=== PATIENT | female | born 1995 | race Caucasian/White ===

== ENCOUNTER 2016-06-10 15:06 | Emergency (ER) | payer BC ==
[2016-06-10] MEDS ORDERED: NS 0.9% 1000 ML* 1,000 ML IV ONE ×2 (15:58→16:16)
[2016-06-10 16:06] LABS: Urine Bilirubin Negative (Negative); Urine Glucose Negative (Negative); Urine Nitrite Negative (Negative)
[2016-06-10] MEDS ORDERED: Metoclopramide IV* 5 MG/ML 2 ML VIAL IV ONE (16:15)
[2016-06-10] MEDS ORDERED: Diazepam TAB(*) 5 MG PO ONE (16:16)
[2016-06-10 16:48] LABS: Hematocrit 41 % (35-47); Hemoglobin 13.7 g/dl (12.0-16.0); Mean Corpuscular HGB Conc 34 g/dl (31-36); Mean Corpuscular Hemoglobin 28 pg (27-31); Mean Corpuscular Volume 83 fL (80-97); Mean Platelet Volume 8 um3 (7.4-10.4); Red Blood Count 4.89 10^6/ul (4.0-5.4); Red Cell Distribution Width 13 % (10.5-15); White Blood Count 13.7 10^3/ul (3.5-10.8)
[2016-06-10 17:04] LABS: ALT 11 U/L (7-52); AST 19 U/L (13-39); Albumin 4.8 g/dL (3.2-5.2); Alkaline Phosphatase 69 U/L (34-104); Anion Gap 10 mmol/L (2-11); Blood Urea Nitrogen 12 mg/dL (6-24); CO2 Carbon Dioxide 24 mmol/L (22-32); Calcium 10.1 mg/dL (8.6-10.3); Chloride 102 mmol/L (101-111); EGFR African American 125.4 (>60); EGFR Non-African American 97.5 (>60); Globulin 3.4 g/dL (2-4); Glucose 96 mg/dL (70-100); Potassium 3.4 mmol/L (3.5-5.0); Sodium 136 mmol/L (133-145); Total Protein 8.2 g/dL (6.4-8.9)
[2016-06-10 17:27] LABS: Erythrocyte Sed Rate 15 mm/Hr (0-14)
[2016-06-10] MEDS ORDERED: Vancomycin(*) 1,250 MG in NS 0.9% 250 ML* 250 ML IVPB ONE (17:36)
[2016-06-10] MEDS ORDERED: Diazepam SYRINGE* 5 MG/ML SYRINGE IV ONE (17:43)
[2016-06-10] MEDS ORDERED: NS 0.9% 250 ML* 250 ML ONE (17:54)
[2016-06-10 18:10] VITALS: BP 143/91
[2016-06-10] MEDS ORDERED: Ketorolac INJ* 30 MG/ML 1 ML VIAL IV PUSH ONE (18:28)
[2016-06-10 18:53] LABS: CSF Glucose 57 mg/dL (40-70)
[2016-06-10 19:13] LABS: BF RBC Count #1 0; BF RBC Count #2 0; BF WBC Count #1 1; BF WBC Count #2 0; Body Fluid Appearance Clear; Body Fluid Total Cells Counted 38; Body Fluid WBC 1 /mcL; RBC counts within 6%? Yes; WBC counts within 15%? Yes
== END 2016-06-10 20:12 | disposition home or self-care (01) ==
LOC: ED 15:06
DX: M54.2 Cervicalgia (principal); R11.0 Nausea
CPT/HCPCS: 36415; 80053; 81003; 82945; 83605; 84157; 84484; 85025; 85610; 85652; 85730; 86141; 87040; 87070; 87205; 89051; 96374; 96375; 99283; A9270-GY; J0696; J1885; J3360; J3370